=== PATIENT | female | born 1935 | race Caucasian/White ===

== ENCOUNTER → 2016-10-30 | Day surgery (SDC) | payer MEDICARE, BC ==
[~2016-10-30] MED LIST: Lactated Ringers 1,000 ML IV SCH; Propofol 200 MG/20 ML SDV IV ONE
[2016-10-30 08:11] VITALS: BP 142/65
--- NOTE | 2016-10-30 08:30 | OR ---
DATE OF OPERATION: 10/30/2016 PREOPERATIVE DIAGNOSIS: ANEMIA WITH HEME-POSITIVE STOOL. POSTOPERATIVE DIAGNOSIS: ANEMIA WITH HEME-POSITIVE STOOL. SURGEON: Caesar Barger MD PROCEDURE: FULL-LENGTH COLONOSCOPY. 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 COMPLICATIONS: None. SPECIMEN: None. FINDINGS: 1. Full-length colonoscopy. 2. [id number] sigmoid diverticulosis. RECOMMENDATIONS: The patient requires EGD followup. INDICATIONS: The patient is newly diagnosed anemic patient, who has iron deficiency and apparently heme-positive stool. She is asymptomatic. Karen Schmidt PA-C, sent her for colonoscopy. DESCRIPTION OF PROCEDURE: The patient was prepped and draped, placed in the left lateral decubitus position. A lubricated Olympus colonoscope was inserted and easily advanced to the cecum. Direct visualization of the ileocecal valve and appendiceal orifice was accomplished. Bowel prep was fine. Upon withdrawal of the scope, throughout the entire length of the colon, I found no signs of any polyps, masses, ulcerations, or bleeding sites. No vascular abnormalities or signs of colitis. The patient does have scattered diverticular disease throughout the sigmoid and into the rectosigmoid junction, mild to moderate in severity. No acute inflammatory changes were seen. I found no signs of any active bleeding, lesions, or otherwise the rectal vault was unremarkable. Retroflexion of the scope in the rectum showed no anal lesions. Air was then suctioned and the scope was removed without complication. SOHN/ANTHONY /[id number]
== END ==
LOC: CC.SDS 05:59
PROVIDERS: ATTEND Family Medicine
DX: K57.30 Diverticulosis of large intestine without perforation or abscess without bleeding (principal); E11.9 Type 2 diabetes mellitus without complications
CPT/HCPCS: 00810; 45378; 82962; J2704; J7120

== ENCOUNTER → 2016-11-06 | Day surgery (SDC) | payer MEDICARE, BC ==
[2016-11-06 08:01] VITALS: BP 138/98
--- NOTE | 2016-11-06 08:11 | OR ---
DATE OF OPERATION: 11/06/2016 PREOPERATIVE DIAGNOSIS: ANEMIA. POSTOPERATIVE DIAGNOSIS: ANEMIA. SURGEON: Caesar Barger MD PROCEDURE: EGD WITH BIOPSIES X4, ROSEMARY. 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 COMPLICATIONS: None. SPECIMEN: 1. Antral biopsy x2. 2. Fundal biopsy x2. 3. ROSEMARY. FINDINGS: 1. Full-length EGD. 2. Large hiatal hernia without esophagitis. 3. Diffuse gastritis, most severe in distal antrum and pylorus. RECOMMENDATIONS: The patient will be placed on proton pump therapy and close medical followup with Karen Schmidt. INDICATIONS: The patient was found to be anemic, routinely on physical and iron deficient. Karen sent her for a colonoscopy which was essentially unremarkable. We elected to proceed with an EGD. DESCRIPTION OF PROCEDURE: The patient was prepped and draped, placed in the left lateral decubitus position. A lubricated Olympus gastroscope inserted over a bit and easily intubated in the esophagus. Esophageal lining was benign in its entire course. The Z-line was crisp and sharp at 30 cm. There was a large hiatal hernia present without any distal esophagitis, stricturing, ulceration, or Petit's changes. The scope was intubated into the stomach through the pylorus and into the third portion of duodenum. Second and third portion of the duodenum along with the duodenal bulb appeared benign. Scope was brought back into the stomach. It was difficult to retroflex. There was a large hernia present, but we were able to get a look at the upper cardia of the stomach. No gross abnormalities were seen from the proximal fundus all the way through the antrum and into the pyloric region. The patient has diffuse gastritis. No hemorrhagic areas, obvious ulcers or erosions were seen. There were no polyps, masses, or otherwise. Two biopsies of the fundus. Two of the distal antrum and peripyloric area were taken along with a ROSEMARY test. Air was then suctioned. Scope was removed without complication. SHON/ANTHONY /[id number]
== END ==
LOC: CC.SDS 06:27
PROVIDERS: ATTEND Family Medicine
DX: K29.70 Gastritis, unspecified, without bleeding (principal); K44.9 Diaphragmatic hernia without obstruction or gangrene; K21.9 Gastro-esophageal reflux disease without esophagitis
CPT/HCPCS: 43239; 87081; J2704; J7120; 00740; 88305; 88342

== ENCOUNTER 2019-08-18 12:02 | Emergency (ER) | payer MEDICARE, BC ==
[2019-08-18 12:58] VITALS: BP 144/65; PULSE 73
--- NOTE | 2019-08-18 13:19 | EDM.PDOC ---
ED HPI GENERAL MEDICAL PROBLEM - General Chief Complaint: General Stated Complaint: lethargic per family Time Seen by Provider: 08/18/19 12:35 Source of Information: Reports: Patient, Family History Limitations: Reports: No Limitations - History of Present Illness INITIAL COMMENTS - FREE TEXT/NARRATIVE: Patient presents with to ER with complaints of "vaginal bleeding off and on for the last month". Patient states "thought it was her monthly". Patient does have history of dementia. reports that he noted spots of blood on the sheets off and on and would note the water in the toilet would be pink at times. He is unsure exactly where the blood is coming from. She denies any abdominal pain today. states she has been eating well. No fevers. He was worried today as she looked pale and seemed more tired this am. Last colonoscopy many years ago. 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 Denies: Fever, Chills, Malaise, Decreased Appetite HEENT: Reports: No Symptoms Respiratory: Denies: Shortness of Breath, Cough Cardiovascular: Denies: Chest Pain, Edema, Lightheadedness Endocrine: Reports: Fatigue GI/Abdominal: Denies: Abdominal Pain, Anorexia, Constipation, Diarrhea, Nausea, Vomiting : Reports: Other (vaginal bleeding) Musculoskeletal: Reports: No Symptoms Skin: Reports: No Symptoms Neurological: Reports: Weakness ED EXAM, GENERAL - Physical Exam Exam: See Below Exam Limited By: No Limitations General Appearance: Alert, WD/WN, No Apparent Distress Ears: Normal External Exam, Normal TMs Nose: Normal Inspection, Normal Mucosa, No Blood Throat/Mouth: Normal Inspection, Normal Oropharynx Head: Normocephalic Neck: Normal Inspection, Supple, Non-Tender Respiratory/Chest: No Respiratory Distress, Lungs Clear, Normal Breath Sounds Cardiovascular: Regular Rate, Rhythm GI/Abdominal: Normal Bowel Sounds, Soft, Non-Tender (Female) Exam: Other (patient has a 1.5 cm abrased area to left labia. Also has irregular stage 2 ulcer near her rectum to right buttock. Vaginal exam done , no obvious bleeding noted. ) Rectal (Female) Exam: Heme + Stool Extremities: Normal Inspection, Pedal Edema Neurological: Alert, Oriented (person only) Skin Exam: Warm, Dry Course - Vital Signs Last Recorded V/S: Last Vital Signs Temp 99.0 F 08/18/19 12:56 Pulse 73 08/18/19 12:56 Resp 16 08/18/19 12:56 BP 144/65 H 08/18/19 12:56 Pulse Ox 97 08/18/19 12:56 - Orders/Labs/Meds Labs: Laboratory Tests 08/18/19 08/18/19 08/18/19 Range/Units 12:30 12:30 13:00 WBC 5.1 (5.0-10.0) 10^3/uL RBC 4.65 (4.00-5.50) 10^6/uL Hgb 14.4 (12.0-16.0) g/dL Hct 42.6 (37.0-47.0) % MCV 91.6 (82.0-94.0) fL MCH 31.0 (27.0-32.0) pg MCHC 33.8 (33.0-38.0) g/dL RDW Coeff of Lon 12.6 (11.0-15.0) % Plt Count 138 L (150-400) 10^3/uL Neut % (Auto) 63.5 (35-85) % Lymph % (Auto) 24.4 (10-55) % Clarke % (Auto) 8.3 (0-16) % Eos % (Auto) 3.8 (0-5) % Baso % (Auto) 0 (0-3) % Neut # (Auto) 3.21 (1.80-7.00) 10^3/uL Lymph # (Auto) 1.23 (1.00-4.80) 10^3/uL Clarke # (Auto) 0.42 (0.00-0.80) 10^3/uL Eos # (Auto) 0.19 (0.00-0.45) 10^3/uL Baso # (Auto) 0.00 10^3/uL Sodium 138 (136-145) mEq/L Potassium 3.8 (3.5-5.0) mEq/L Chloride 103 (98-106) mEq/L Carbon Dioxide 28 (21-32) mmol/L BUN 16 (7-18) mg/dL Creatinine 1.2 H (0.6-1.0) mg/dL Est Cr Clr Drug Dosing 28.59 mL/min Estimated GFR (MDRD) 43 L (>=60) mL/min Glucose 194 H D (75-99) mg/dL Calcium 8.9 (8.4-10.1) mg/dL Total Bilirubin 0.6 (0.0-1.0) mg/dL AST 32 (15-37) U/L ALT 50 (12-78) U/L Alkaline Phosphatase 116 (46-116) U/L Total Protein 7.3 (6.4-8.2) g/dL Albumin 3.5 (3.4-5.0) g/dL Urine Color Yellow (YELLOW) Urine Appearance Clear (CLEAR) Urine pH 5.5 (4.5-8.0) Ur Specific [place] 1.025 H (1.003-1.020) Urine Protein Negative (NEGATIVE) mg/dL Urine Glucose (UA) 250 H (NEGATIVE) mg/dL Urine Ketones Negative (NEGATIVE) mg/dL Urine Occult Blood Moderate H (NEGATIVE) Urine Nitrite Negative (NEGATIVE) Urine Bilirubin Negative (NEGATIVE) Urine Urobilinogen 0.2 (0.2-1.0) EU/dL Ur Leukocyte Esterase Negative (NEGATIVE) Urine RBC 5-10 H (0-5) /HPF Urine WBC 0-5 (0-5) /HPF Ur Squamous Epith Cells Occasional H (NOT SEEN) /HPF Urine Bacteria Occasional H (NOT SEEN) /HPF - Re-Assessments/Exams Free Text/Narrative Re-Assessment/Exam: 08/17 Labs are all essentially normal. Does have blood in urine, obtained by straight cath. informed. Did discuss proceeding with colonoscopy due to heme+ stool. He would like to proceed. Dr. Barger also informed. Placed duoderm to ulcer to buttock. Will also have apply zinc oxide as duoderm may not stick but advised needs to try to keep the area as clean and dry as possible. 08/20/19 22:16 Departure - Departure Time of Disposition: 13:52 Disposition: Home, Self-Care 01 Condition: Good Clinical Impression: Melena, Decubitus ulcer of ankle, stage 2 - Discharge Information *PRESCRIPTION DRUG MONITORING PROGRAM REVIEWED*: No *COPY OF PRESCRIPTION DRUG MONITORING REPORT IN PATIENT FANI: No Referrals: Karen Schmidt PA-C [Primary Care Provider] - Forms: ED Department Discharge Additional Instructions: 1. Rest 2. Push fluids 3. Either duoderm or zinc oxide to sores in sixto area/buttock region until healed 4. Colonoscopy as scheduled- see instructions 5. Return if faints, has pain, worsening bleeding 6. Call with any questions or concerns. Sepsis Event Note - Evaluation Sepsis Screening Result: No Definite Risk - Focused Exam Date Exam was Performed: 08/20/19 Time Exam was Performed: 22:05
== END 2019-08-18 14:05 | disposition home or self-care (01) ==
LOC: CC.ED 12:02
DX: K92.1 Melena (principal); L89.502 Pressure ulcer of unspecified ankle, stage 2; L89.312 Pressure ulcer of right buttock, stage 2; E11.9 Type 2 diabetes mellitus without complications; Z79.84 Long term (current) use of oral hypoglycemic drugs; Z79.899 Other long term (current) drug therapy
CPT/HCPCS: 36415; 80053; 81001; 85025; 99284

== ENCOUNTER 2019-10-26 09:35 | Emergency (ER) | payer MEDICARE, BC ==
[2019-10-26 09:48] VITALS: BP 139/57; PULSE 80
--- NOTE | 2019-10-26 10:53 | EDM.PDOC ---
ED HPI GENERAL MEDICAL PROBLEM - General Chief Complaint: Genitourinary Problem Stated Complaint: VAG BLEEDING Time Seen by Provider: 10/26/19 10:45 Source of Information: Reports: Patient, Family History Limitations: Reports: Altered Mental Status (dementia) - History of Present Illness INITIAL COMMENTS - FREE TEXT/NARRATIVE: bree is an 84 yo female who presents to the ED, accompanied by her spouse, with complaints of increased vaginal bleeding. Bree has a history of dementia. She has been having vaginal bleeding intermittently over the last 4 months or so. Nurse today did speak with her daughter in regards to her bleeding. Was seen two days ago in the clinic and underwent speculum exam. Bleeding appeared to be coming from the cervix. No obvious masses or lesions were noted. She is scheduled for a pelvic ultrasound this afternoon. This morning there was a larger amount of bleeding and this concerned the daughter and which brought them into the ED. She does admit to intermittent abdominal pain as well and this morning it was worse. States it is in her lower mid abdomen. 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 Denies: Fever, Chills, Decreased Appetite HEENT: Reports: No Symptoms Respiratory: Reports: No Symptoms Cardiovascular: Reports: Chest Pain (chronic intermittent, none as of recently) GI/Abdominal: Reports: Abdominal Pain, Nausea. Denies: Bloody Stool, Constipation, Diarrhea, Hematemesis, Vomiting : Reports: Irregular Menses, Pain. Denies: Discharge, Dysuria, Flank Pain, Frequency Musculoskeletal: Reports: No Symptoms Skin: Reports: No Symptoms Neurological: Reports: Confusion, Pre-Existing Deficit (dementia) ED EXAM, GI/ABD - Physical Exam Exam: See Below Exam Limited By: No Limitations General Appearance: Alert, No Apparent Distress Ears: Normal External Exam, Hearing Grossly Normal Nose: Normal Inspection Throat/Mouth: Normal Inspection, Normal Voice, No Airway Compromise Head: Atraumatic, Normocephalic Neck: Normal Inspection, Supple Respiratory/Chest: No Respiratory Distress, Lungs Clear, Normal Breath Sounds, No Accessory Muscle Use Cardiovascular: Normal Peripheral Pulses, Regular Rate, Rhythm, No Edema, No Murmur GI/Abdominal Exam: Soft, No Distention, No Mass, Tender (mild suprapubic tenderness) (Female) Exam: Deferred (completed on Wednesday in the clinic) Neurological: Alert, No Motor/Sensory Deficits, Memory Loss Recent Events Psychiatric: Normal Affect, Normal Mood Skin Exam: Warm, Dry, Intact, Normal Color, No Rash Course - Vital Signs Last Recorded V/S: Last Vital Signs Temp 97.4 F 10/26/19 09:45 Pulse 80 10/26/19 09:45 Resp 18 10/26/19 09:45 BP 139/57 L 10/26/19 09:45 Pulse Ox 96 10/26/19 09:45 - Orders/Labs/Meds Orders: Active Orders 24 hr Category Date Time Status Pelvis Non OB Comp [US] Stat Exams 10/26/19 10:41 Ordered Transvaginal Non OB [US] Stat Exams 10/26/19 10:40 Ordered Labs: Laboratory Tests 10/26/19 10/26/19 Range/Units 10:30 10:30 WBC 7.4 (5.0-10.0) 10^3/uL RBC 3.95 L (4.00-5.50) 10^6/uL Hgb 12.5 (12.0-16.0) g/dL Hct 36.5 L (37.0-47.0) % MCV 92.4 (82.0-94.0) fL MCH 31.6 (27.0-32.0) pg MCHC 34.2 (33.0-38.0) g/dL RDW Coeff of Lon 12.8 (11.0-15.0) % Plt Count 137 L (150-400) 10^3/uL Neut % (Auto) 75.9 (35-85) % Lymph % (Auto) 13.9 (10-55) % Park % (Auto) 8.6 (0-16) % Eos % (Auto) 1.6 (0-5) % Baso % (Auto) 0 (0-3) % Neut # (Auto) 5.63 (1.80-7.00) 10^3/uL Lymph # (Auto) 1.03 (1.00-4.80) 10^3/uL [place] # (Auto) 0.64 (0.00-0.80) 10^3/uL Eos # (Auto) 0.12 (0.00-0.45) 10^3/uL Baso # (Auto) 0.00 10^3/uL Sodium 140 (136-145) mEq/L Potassium 3.9 (3.5-5.0) mEq/L Chloride 107 H (98-106) mEq/L Carbon Dioxide 25 (21-32) mmol/L BUN 13 (7-18) mg/dL Creatinine 1.2 H (0.6-1.0) mg/dL Est Cr Clr Drug Dosing 28.59 mL/min Estimated GFR (MDRD) 43 L (>=60) mL/min Glucose 215 H (75-99) mg/dL Calcium 8.7 (8.4-10.1) mg/dL Total Bilirubin 0.6 (0.0-1.0) mg/dL AST 20 (15-37) U/L ALT 27 (12-78) U/L Alkaline Phosphatase 85 (46-116) U/L C-Reactive Protein 2.6 H (0.2-0.8) mg/dL Total Protein 6.8 (6.4-8.2) g/dL Albumin 3.1 L (3.4-5.0) g/dL Amylase 50 (25-115) U/L Lipase 135 (73-393) U/L Departure - Departure Time of Disposition: 12:22 Disposition: Home, Self-Care 01 Clinical Impression: Abnormal vaginal bleeding in postmenopausal patient, Endometrial thickening on ultrasound - Discharge Information Referrals: PCP,Unknown [Primary Care Provider] - Forms: ED Department Discharge Additional Instructions: 1) Endometrium is thickened. Endometrial biopsy scheduled with Dr. Barger in [place] in the clinic for WednesdayOctober 29 at 3:00pm. 2) Hemoglobin is normal today. So you are not losing a lot of blood at this time 3) closely monitor for bleeding and if there is increase in bleeding, recommend returning to the ER 4) If any questions or concerns, please let us know Sepsis Event Note (ED) - Evaluation Sepsis Screening Result: No Definite Risk - Focused Exam Vital Signs: Vital Signs Temp Pulse Resp BP Pulse Ox 10/26/19 09:45 97.4 F 80 18 139/57 L 96 - Problem List & Annotations (1) Abnormal vaginal bleeding in postmenopausal patient SNOMED Code(s): 29763992 Code(s): N95.0 - POSTMENOPAUSAL BLEEDING Status: Acute Current Visit: Yes - My Orders Last 24 Hours: My Active Orders 10/26/19 10:40 Transvaginal Non OB [US] Stat 10/26/19 10:41 Pelvis Non OB Comp [US] Stat - Assessment/Plan Last 24 Hours: My Active Orders 10/26/19 10:40 Transvaginal Non OB [US] Stat 10/26/19 10:41 Pelvis Non OB Comp [US] Stat Plan: Laboratory work is stable today. Hgb is normal at 12.5. We did proceed with ultrasound this morning, currently pending results. Ultrasound did show a significantly thickened endometrium. Consulted with Dr. Barger and he will do an endometrial biopsy on Wednesday at 3:00pm. Will discharge home at this time. Please see additional instructions.
== END 2019-10-26 12:55 | disposition home or self-care (01) ==
LOC: CC.ED 09:35
DX: N95.0 Postmenopausal bleeding (principal); N85.8 Other specified noninflammatory disorders of uterus; F03.90 Unspecified dementia, unspecified severity, without behavioral disturbance, psychotic disturbance, mood disturbance, and anxiety; E11.9 Type 2 diabetes mellitus without complications; Z79.84 Long term (current) use of oral hypoglycemic drugs
CPT/HCPCS: 36415; 76830; 76856; 80053; 82150; 83690; 85025; 86140; 99284; 99284-25